=== PATIENT | female | born 1950 ===

== ENCOUNTER 2017-09-20 06:25 | Day surgery (SDC) | payer OTHER ==
[~2017-09-20 06:25] MED LIST: CIPRO500 MG PO; INTESTINEX1 CA1 PO; RECTICARE30 GM TP; TRAM1TAB98 PO
== END 2017-09-20 11:00 | disposition home or self-care (01) ==
LOC: AMB-ENDOS 06:25
DX: K64.8 Other hemorrhoids (principal)

== ENCOUNTER 2019-03-06 06:51 | Day surgery (SDC) | payer OTHER | END 2019-03-06 13:15 | disposition home or self-care (01) | LOC: AMB-ENDOS 06:51 | DX: K57.30 Diverticulosis of large intestine without perforation or abscess without bleeding (principal) ==